=== PATIENT | female | born 1990 | race Caucasian/White ===

== ENCOUNTER → 2016-03-16 | Outpatient (CLI) | payer BC | LOC: LAB 10:30 | DX: J02.9 Acute pharyngitis, unspecified (principal); R52 Pain, unspecified ==

== ENCOUNTER → 2018-10-21 | Outpatient (CLI) | payer BC ==
[2018-10-21 18:12] LABS: HEMOGLOBIN 14.3 g/dL (12.5-16.0); MEAN CELL VOLUME 91 fl (78-100); MEAN CORPUSCULAR HEMOGLOBIN 31 pg (27-31); MEAN CORPUSCULAR HGB CONC 34 g/dL (33-37); MEAN PLATELET VOLUME 10.2 fl (7.4-10.4); PLATELET COUNT 283 K/mm3 (130-400); RED BLOOD COUNT 4.63 M/mm3 (4.10-5.30); WHITE BLOOD COUNT 11.4 K/mm3 (4.8-10.8)
[2018-10-21 18:19] LABS: ALBUMIN 4.4 g/dL (3.5-5.0); POTASSIUM 4.6 mmol/L (3.5-5.1)
[2018-10-21 18:20] LABS: CALCIUM 9.2 mg/dL (8.3-10.5)
[2018-10-21 18:21] LABS: TOTAL PROTEIN 7.3 g/dL (6.4-8.3)
[2018-10-21 18:23] LABS: TOTAL BILIRUBIN 0.4 mg/dL (0.2-1.2)
[2018-10-21 18:51] LABS: LYMPHOCYTE 11 % (20-51); MONOCYTE 3 % (3-10); NEUTROPHILS 86 % (42-75)
== END ==
LOC: LAB 17:42
PROVIDERS: Nurse Practitioner
DX: R50.9 Fever, unspecified (principal); R21 Rash and other nonspecific skin eruption

== ENCOUNTER 2019-02-06 15:00 | Outpatient (RCR) | payer BC ==
[2018-11-13 19:24] VITALS: BP 105/69
[~2019-02-06 15:00] MED LIST: CEPHALEXIN500 M2 PO; CYCLOBENZ5 MG PO; ENOXAPARIN40 MG/0.1 SQ; LO LOESTRIN FE1 TAB PO; MELOXICAM15 MG PO; MOTEGRITY2 MG PO; NEURONTIN300 MG/CAP PO; OXYCODONE5 M1 PO; PROBIOTIC1 EAC2 PO; SEPTRA DS 8001 TAB PO; WELLBUTRIN 75MG75 MG PO; ZOFRAN ODT4 MG PO; ZYRTEC10 M3 PO
== END 2019-03-14 | disposition still patient (30) ==
LOC: PT
DX: Z98.890 Other specified postprocedural states (principal)

== ENCOUNTER → 2020-01-03 | Outpatient (CLI) | payer BC ==
[2018-11-13 19:24] VITALS: BP 105/69
== END ==
LOC: RAD 10:00
DX: M25.512 Pain in left shoulder (principal); M25.552 Pain in left hip; Z98.890 Other specified postprocedural states